=== PATIENT | male | born 1970 | race African-American/Black ===

== ENCOUNTER 2023-06-25 11:31 | Outpatient (CLI) | payer MEDICARE, OTHER ==
--- NOTE | 2023-06-25 15:56 | XRAY Report ---
PROCEDURE: Cervical Spine 2 View INDICATIONS: CERVICALGIA TECHNIQUE: 3 view(s) of the cervical spine were acquired. COMPARISON: None. FINDINGS: Bones: No fractures or dislocations to the C7-T1 level. The lateral masses of C1 appear intact on t he odontoid view. No suspicious bony lesions. Moderate to severe disc space narrowing is present at C4-5. Soft tissues: No prevertebral soft tissue swelling. IMPRESSION: Degenerative changes most prominent at C4-5. Reviewed by: Kelly Mallory MD on 06/25/2023 3:55 PM PST Approved by: Kelly Mallory MD on 06/25/2023 3:55 PM PST Station ID: [id number]
--- NOTE | 2023-06-25 16:03 | XRAY Report ---
PROCEDURE: Hand 3 View LT INDICATIONS: LEFT WRIST PAIN TECHNIQUE: 3 views of the hand(s) acquired. COMPARISON: None. FINDINGS: Bones: No fractures or dislocations. No suspicious bony lesions. No appreciable degenerative jimenez ge. Soft tissues: No suspicious soft tissue calcifications or masses. IMPRESSION: No acute bony abnormality. Reviewed by: Kelly Mallory MD on 06/25/2023 4:01 PM [facility] Approved by: Kelly Mallory MD on 06/25/2023 4:01 PM [facility] Station ID: [id number]
--- NOTE | 2023-06-25 16:03 | XRAY Report ---
PROCEDURE: Wrist 3 View LT INDICATIONS: LEFT WRIST PAIN TECHNIQUE: 3 views of the wrist were acquired. COMPARISON: None. FINDINGS: Bones: No fractures or dislocations. No suspicious bony lesions. Soft tissues: No suspicious soft tissue calcifications or masses. IMPRESSION: No acute bony abnormality. Reviewed by: Kelly Mallory MD on 06/25/2023 4:02 PM [facility] Approved by: Kelly Mallory MD on 06/25/2023 4:02 PM [facility] Station ID: [id number]
--- NOTE | 2023-06-25 16:03 | XRAY Report ---
PROCEDURE: Knee 3 View BILAT INDICATIONS: BILATERAL KNEE PAIN TECHNIQUE: 3 views of the knee(s) were acquired. COMPARISON: None. FINDINGS: Bones: No fractures or dislocations. No suspicious bony lesions. No appreciable significant degenerative change. Soft tissues: No knee joint effusion. No suspicious soft tissue calcifications or masses. IMPRESSION: No acute bony abnormality. Reviewed by: Kelly Mallory MD on 06/25/2023 4:02 PM [facility] Approved by: Kelly Mallory MD on 06/25/2023 4:02 PM [facility] Station ID: [id number]
== END 2023-06-25 11:32 | disposition home or self-care (01) ==
LOC: DI 11:31
PROVIDERS: ATTEND Nurse Practitioner Family
DX: M25.532 Pain in left wrist (principal); M25.561 Pain in right knee; M25.562 Pain in left knee; M47.812 Spondylosis without myelopathy or radiculopathy, cervical region